=== PATIENT | female | born 1940 | race Two or more races ===

== ENCOUNTER 2017-12-15 21:01 | Inpatient (IN) | payer MEDICAID, MEDICARE ==
[~2017-12-15] VITALS: Ht 167.6 cm; Wt 67.6 kg
[2017-12-15 21:05] VITALS: BP 131/64
--- NOTE | 2017-12-15 21:05 | NUR ---
RN NOTES ADMITTED A 77 YEARS OLD, FEMALE PT FROM [place], WITH PRIMARY DIAGNOSIS OF SYNCOPE UNDER MEDICAL MGT OF DR BEE. PT IS ALERT AND ORIENTED X2 WITH PERIODS OF CONFUSION. VITAL SIGNS STABLE, ATTACHED TO TELEMONITOR WHICH READS SINUS RHYTHM AT 84. DENIES PAIN, NAUSEA AND VOMITING AT THIS TIME. SKIN AND BODY ASSESSMENT DONE, SKIN CLEAR AND INTACT. DR BEE MADE AWARE ABOUT THE ADMISSION, ADMITTING ORDERS MADE AND CARRIED OUT. SAFETY MEASURES AND FALL PRECAUTION OBSERVED. CAREGIVER AT BEDSIDE. WILL CONTINUE TO MONITOR PT.
--- NOTE | 2017-12-15 22:00 | NUR ---
RN NOTES SEEN AND EXAMINED BY DR BEE, NEW ORDERS MADE, CONTINUE HOME MEDS. WILL CONTINUE TO MONITOR PT.
[2017-12-15] MEDS ORDERED: IV NS 0.9% 1,000 ML IV PRN (22:15)
[2017-12-15] MEDS ORDERED: MAG HYDROX/AL HYDROX/SIMETH 30 ML UDC PO PRN (22:30)
[2017-12-15] MEDS ORDERED: ONDANSETRON HCL/PF 4 MG/2 ML VIAL IVP PRN (22:30)
[2017-12-15] MEDS ORDERED: HYDROCODONE/APAP 5/325MG 1 EACH TABLET PO PRN (22:30)
[2017-12-15] MEDS ORDERED: ACETAMINOPHEN 325 MG TABLET PO PRN (22:30)
[2017-12-15] MEDS ORDERED: ZOLPIDEM TARTRATE 5 MG TABLET PO PRN (22:30)
[2017-12-15] MEDS ORDERED: Z GUARD REMEDY 2 OZ OINT TP PRN (22:30)
[2017-12-15] MEDS ORDERED: MAGNESIUM HYDROXIDE 30 ML UDC PO PRN (22:30)
[2017-12-15] MEDS: ENOXAPARIN SODIUM 40 MG/0.4 ML DISP.SYRIN SQ SCH (22:49)
[2017-12-15] MEDS ORDERED: MULT-31 PO (23:04)
[2017-12-15] MEDS ORDERED: POLY255P2 PO (23:04)
[2017-12-15] MEDS ORDERED: LACT10SO PO (23:04)
[2017-12-15] MEDS ORDERED: SITA50TA PO (23:04)
[2017-12-15] MEDS ORDERED: DIVA500T7 PO ×2 (23:04)
[2017-12-15] MEDS ORDERED: LISI-603 PO (23:04)
[2017-12-15] MEDS ORDERED: ATOR10TA PO (23:04)
[2017-12-15] MEDS ORDERED: ASPI-605 PO (23:04)
[2017-12-15] MEDS ORDERED: LATA2.5D2 OP (23:04)
[2017-12-15] MEDS ORDERED: ALEN70TA45 PO (23:04)
[2017-12-15] MEDS ORDERED: MAGN400O21 PO (23:04)
[2017-12-15] MEDS ORDERED: METF500T4 PO (23:04)
[2017-12-15] MEDS ORDERED: FERR325T23 PO (23:04)
[2017-12-15] MEDS ORDERED: LEVO330T PO (23:04)
[2017-12-15] MEDS ORDERED: DIPH50CA4 PO (23:29)
[2017-12-15] MEDS ORDERED: ALBU1.257 NEB (23:29)
[2017-12-15] MEDS ORDERED: IBUP-1957 PO (23:29)
[2017-12-15] MEDS ORDERED: GUAI120S17 PO (23:29)
[2017-12-15] MEDS ORDERED: DEXT15DR6 OP (23:29)
[2017-12-15] MEDS ORDERED: TYL2T MC (23:29)
[2017-12-16] VITALS (7 sets, daily range): BP systolic 126–159; BP diastolic 70–88
[2017-12-16] MEDS ORDERED: ALBUTEROL HALF STRENGTH 1.25 MG/3 ML VIAL.NEB NEB PRN
[2017-12-16] MEDS ORDERED: DEXTROSE 50%-WATER 50 ML DISP.SYRIN IV PRN
[2017-12-16] MEDS ORDERED: POLYVINYL ALCOHOL 15 ML BOTTLE EACHEYE PRN
[2017-12-16] MEDS: IBUPROFEN 800 MG TABLET PO SCH ×2 (06:00)
[2017-12-16 06:35] LABS: BASOPHILS % (AUTO) 0.4 % (0.0-2.0); EOSINOPHILS % (AUTO) 0.6 % (0.0-6.0); HEMATOCRIT 29 % (33-45); HEMOGLOBIN 10.2 g/dL (11.5-14.8); LYMPHOCYTES # (AUTO) 1.1 /CMM (0.8-4.8); LYMPHOCYTES % (AUTO) 25.4 % (20.0-44.0); MEAN CORPUSCULAR HEMOGLOBIN 34 PG (26.0-33.0); MEAN CORPUSCULAR HGB CONC 35 g/dl (31.0-36.0); MEAN CORPUSCULAR VOLUME 96 fL (82-100); MONOCYTES # (AUTO) 0.6 /CMM (0.1-1.30); MONOCYTES % (AUTO) 13.3 % (2.0-12.0); NEUTROPHILS # (AUTO) 2.7 /CMM (1.8-8.9); NEUTROPHILS % (AUTO) 60.3 % (43.0-81.0); PLATELET COUNT (AUTO) 92 /CMM (150-450); RDW COEFFICIENT OF VARIATION 13.1 (11.5-15.0); RED BLOOD CELL COUNT(AUTO) 3.05 MIL/uL (4.0-5.2); WHITE BLOOD COUNT (AUTO) 4.5 K/uL (4.3-11.0)
[2017-12-16] MEDS: BLOOD SUGAR DIAGNOSTIC 1 EACH STRIP IN SCH ×4 (06:40→21:54)
[2017-12-16 06:48] LABS: B-TYPE NATRIURETIC PEPTIDE 622 PG/ML (0-125); CALCIUM, SERUM 8.5 mg/dL (8.5-10.1); CARBON DIOXIDE 28 mmol/L (21-32); CHLORIDE 104 mmol/L (98-107); CREATININE 0.5 mg/dL (0.6-1.3); GLUCOSE 82 mg/dL (74-106); MAGNESIUM 1.7 mg/dL (1.8-2.4); PHOSPHORUS 2.9 mg/dL (2.5-4.9); POTASSIUM 3.7 mmol/L (3.5-5.1); SODIUM SERUM 139 mmol/L (136-145); UREA NITROGEN, BLOOD 13 mg/dL (7-18)
[2017-12-16 06:53] LABS: CHOLESTEROL 108 mg/dL (<200); HDL CHOLESTEROL 79 mg/dL (40-60); LDL 31 mg/dL (0-99); TRIGLYCERIDES 14 mg/dL (30-150)
--- NOTE | 2017-12-16 07:08 | NUR ---
RN NOTES PT SLEPT WELL OVERNIGHT. VITAL SIGNS STABLE, DENIES PAIN, NAUSEA AND VOMITING. EKG X2 AND TELEMONITOR READS SINUS RHYTHM WITH HEART RATE AT 72. ASSISTED TO THE BATHROOM WITH MODERATE ASSISTANCE. ALL NEEDS ATTENDED. FALL PRECAUTION OBSERVED. WILL ENDORSE TO MORNING RN FOR CONTINUITY OF CARE.
[2017-12-16] MEDS ORDERED: ALENDRONATE 70 MG TABLET PO SCH (07:30)
[2017-12-16] MEDS: LINAGLIPTIN 5 MG TABLET PO SCH (08:36)
[2017-12-16] MEDS: LISINOPRIL (20MG) 20 MG TABLET PO SCH (08:36)
[2017-12-16] MEDS: LEVOCARNITINE 330 MG TABLET PO SCH ×2 (08:37→17:24)
[2017-12-16] MEDS: METFORMIN 500 MG TABLET PO SCH ×2 (08:37→17:00)
[2017-12-16] MEDS: ASPIRIN EC 81 MG TABLET.DR PO SCH (08:37)
[2017-12-16] MEDS: MULTIVITAMIN/LUTEIN/MINERALS 1 TAB PO SCH (08:37)
[2017-12-16] MEDS: ATORVASTATIN 10 MG TABLET PO SCH (08:37)
[2017-12-16] MEDS ORDERED: DIVALPROEX SODIUM 500 MG TABLET.DR PO SCH ×2 (09:00→22:00)
[2017-12-16] MEDS ORDERED: FERROUS SULFATE UDC 300 MG/5 ML UDC PO SCH (09:00)
--- NOTE | 2017-12-16 09:00 | NUR ---
tele skein winder: cardio consult seen and examined by dr. vaughn with new orders. orders acknowledged.
[2017-12-16] MEDS: IV NS 0.9% 1,000 ML IV SCH ×2 (09:13→17:21)
[2017-12-16] MEDS: FENOFIBRATE NANOCRYS (145 MG) 145 MG TABLET PO SCH (09:13)
[2017-12-16 09:19] LABS: LYMPHOCYTES % (MANUAL) 18 % (16-48); MONOCYTES % (MANUAL) 15 % (0-11.0); NEUTROPHILS % (MANUAL) 67 (42-76)
--- NOTE | 2017-12-16 10:00 | NUR ---
tele production metal sprayer: neuro consult seen and examined by dr. gallardo at this time. tele remains sr=80's. private caregiver remains at bedside. will continue to monitor.
[2017-12-16 10:02] LABS: THYROID STIMULATING HORMONE 1.841 uIU/mL (0.358-3.74)
[2017-12-16] MEDS: INSULIN REGULAR, HUMAN 100 UNIT/ML 3 ML VIAL SQ PRN ×2 (11:39→21:59)
[2017-12-16] MEDS: IBUPROFEN 600 MG TABLET PO SCH ×2 (12:01→17:24)
[2017-12-16] MEDS: Magnesium 1GM/D5W 100ML PREMIX 100 ML IV SCH ×2 (12:02→13:39)
--- NOTE | 2017-12-16 12:10 | NUR ---
m/s production repairer: md visit seen and examined by rosey (laila) at this time. p.t. tx was held due to orthostatic, laila made aware; also made aware that pt wasn't orthostatic this morning with no new order.
[2017-12-16 15:03] LABS: APPEARANCE,URINE SL CLOUDY (CLEAR); BILIRUBIN,URINE NEGATIVE (NEGATIVE); BLOOD, URINE TRACE Ery/uL (NEGATIVE); COLOR,URINE YELLOW (YELLOW); KETONES,URINE NEGATIVE (NEGATIVE); LEUKOCYTE ESTERASE ,URINE NEGATIVE (NEGATIVE); NITRITE, URINE NEGATIVE (NEGATIVE); PH,URINE 6.5 (5.0-8.0); PROTEIN,URINE NEGATIVE (NEGATIVE); UGLUCOSE 3+ mg/dL (NEGATIVE); UROBILINOGEN,URINE 0.2 EU/dL (0.2)
[2017-12-16 15:19] LABS: BACTERIA,URINE None seen /HPF (None Seen); SQUAMOUS EPITHELIAL CELL,UR Few /HPF (None Seen); WBC,URINE 0-2 /HPF (0-3)
--- NOTE | 2017-12-16 17:20 | NUR ---
m/s fast food server: notes bs check 47-48. pt asymptomatic. dinner served with orange juice provided. held glucophage med. will continue to monitor.
--- NOTE | 2017-12-16 17:50 | NUR ---
m/s plant care worker: notes pt remains asymptomatic. continue on ivf of ns at 200ml/hr then h/l. pt had dinner. re check do=200. private caregiver remains at bedside. needs attended. no apparent distress noted. will continue to monitor.
--- NOTE | 2017-12-16 18:32 | NUR ---
Patient resides at [facility] [place] ADDRESS: [id number] [facility], [place] tel: [phone]. Spoke with Genevieve hector at the [facility] custodial, patient has 1:1 sitter/ caregiver at the facility.Patient ambulates with a walker, requires assistance with adl's. Current plan is to return to the custodial. [facility] has transformation available when discharge. Addendum: 12/16/17 at 1834 by JAZMINE REYNAGA RN Amended: Links added.
--- NOTE | 2017-12-16 18:50 | NUR ---
m/s despatching and receiving clerk: notes resting comfortable in bed with no distress noted. private caregiver at bedside. will continue to monitor.
--- NOTE | 2017-12-16 19:10 | NUR ---
RN NOTES RECEIVED PT AWAKE, HOB ELEVATED, ON ROOM AIR AND TOLERATED WELL. PT ALERT AND ORIENTED X2 WITH CONFUSION NOTED. DENIES PAIN, NAUSEA AND VOMITING. IV ACCESS ON LEFT FOREARM PATENT AND INTACT WITH ONGOING IVF FLUID AT BOLUS RATE. SAFETY MEASURES AND FALL PRECAUTION OBSERVED WITH CALL LIGHT WITHIN REACH, CAREGIVER AT BEDSIDE. WILL CONTINUE TO MONITOR PT.
[2017-12-16] MEDS: LATANOPROST EYE DROP 0.005% 2.5 ML BOTTLE OP SCH (21:55)
[2017-12-16] MEDS: POLYETHYLENE GLYCOL 3350 17 GM POWD.PACK PO SCH (21:56)
[2017-12-16] MEDS: DIVALPROEX SODIUM 125 MG TABLET.DR PO SCH (21:56)
[2017-12-16] MEDS: ENOXAPARIN SODIUM 40 MG/0.4 ML DISP.SYRIN SQ SCH (21:57)
[2017-12-17] MEDS: IBUPROFEN 600 MG TABLET PO SCH ×5 (00:28→23:06)
[2017-12-17 06:00] VITALS: BP_SYST 162; BP_SYST 165; BP_SYST 170; BP_DIAS 85; BP_DIAS 90; BP_DIAS 93
[2017-12-17 06:37] LABS: CALCIUM, SERUM 8.6 mg/dL (8.5-10.1); CARBON DIOXIDE 29 mmol/L (21-32); CHLORIDE 103 mmol/L (98-107); CREATININE 0.5 mg/dL (0.6-1.3); GLUCOSE 74 mg/dL (74-106); MAGNESIUM 1.8 mg/dL (1.8-2.4); POTASSIUM 4.4 mmol/L (3.5-5.1); SODIUM SERUM 138 mmol/L (136-145); UREA NITROGEN, BLOOD 10 mg/dL (7-18)
[2017-12-17] MEDS: BLOOD SUGAR DIAGNOSTIC 1 EACH STRIP IN SCH ×4 (06:52→22:56)
--- NOTE | 2017-12-17 07:30 | NUR ---
RN MS NOTES PT IN BED, AWAKE, ALERT, NO COMPLAINT OF PAIN, RESPIRATIONS NORMAL AND NOT LABORED, CAREGIVER AT BEDSIDE, CALL LIGHT WITHIN REACH, SAFETY PRECAUTIONS OBSERVED, NEEDS ATTENDED.
--- NOTE | 2017-12-17 07:46 | NUR ---
RN NOTES PT AWAKE,NO SIGNS OF DISTRESS AND DISCOMFORT NOTED. DENIES PAIN, NAUSEA AND VOMITING. ASSISTED TO THE BATHROOM, FALL PRECAUTION OBSERVED. ALL NEEDS ATTENDED, CAREGIVER AT BEDSIDE. ENDORSED TO MORNING RN FOR CONTINUITY OF CARE.
[2017-12-17 08:00] VITALS: BP 178/96
[2017-12-17] MEDS ORDERED: MAGNESIUM HYDROXIDE 30 ML UDC PO SCH (09:00)
[2017-12-17] MEDS: METFORMIN 500 MG TABLET PO SCH ×2 (09:30→17:57)
[2017-12-17] MEDS: DIVALPROEX SODIUM 125 MG TABLET.DR PO SCH ×2 (09:30→22:57)
[2017-12-17] MEDS: LISINOPRIL (20MG) 20 MG TABLET PO SCH (09:30)
[2017-12-17] MEDS: FENOFIBRATE NANOCRYS (145 MG) 145 MG TABLET PO SCH (09:30)
[2017-12-17] MEDS: ASPIRIN EC 81 MG TABLET.DR PO SCH (09:31)
[2017-12-17] MEDS: LINAGLIPTIN 5 MG TABLET PO SCH (09:31)
[2017-12-17] MEDS: MULTIVITAMIN/LUTEIN/MINERALS 1 TAB PO SCH (09:32)
[2017-12-17] MEDS: LEVOCARNITINE 330 MG TABLET PO SCH ×2 (09:34→17:57)
[2017-12-17] MEDS: ATORVASTATIN 10 MG TABLET PO SCH (09:37)
[2017-12-17] MEDS ORDERED: MAGNESIUM CITRATE 296 ML BOTTLE PO ONE ×3 (10:30→15:30)
[2017-12-17] MEDS ORDERED: NA PHOS,M-B/NA PHOS,DI-BA 1 EA ENEMA RC PRN (12:30)
[2017-12-17] MEDS ORDERED: PEG 3350/NA SULF,BICARB,CL/KCL 4,000 ML BOTTLE PO ONE (12:30)
--- NOTE | 2017-12-17 13:00 | NUR ---
RN MS NOTES PT IN BED, ASSISTED TO BATHROOM NEEDED, PT SEEN BY JORGE CRUZ AND OTILIO AMBULATORY TECHNOLOGIST FOR GI CONSULT, PLAN FOR ENDOSCOPY AND COLONOSCOPY TOMORROW, PT AND CAREGIVER INFORMED, KEPT PT COMFORTABLE.
[2017-12-17] MEDS: INSULIN REGULAR, HUMAN 100 UNIT/ML 3 ML VIAL SQ PRN (13:21)
[2017-12-17] MEDS: SOD FERRIC GLUC 125 MG in IV NS 0.9% 100 ML IV SCH (15:37)
[2017-12-17 16:00] VITALS: BP 146/78
--- NOTE | 2017-12-17 18:30 | NUR ---
RN MS NOTES PT IN BED, AWAKE, ALERT AND ORIENTED, NO COMPLAINT OF PAIN, BREATHING PATTERN NORMAL AND NOT LABORED, CALL LIGHT WITHIN REACH, CAREGIVER AT BEDISIDE, STARTED ON PRE OP PREP, TOLERATING GOLYTELY WELL, ASSISTED TO BATHROOM, STOOL IS GETTING WATERY BUT NOT CLEAR YET, INSTRUCTED CAREGIVER TO CONTINUE TO OFFER GOLYTELY, VERBALIZED UNDERSTANDING, PT IS COMPLIANT WITH CARE, CALLED KING QUIJANO [facility] LASER BEAM TRIM OPERATOR FOR PT, LEFT MESSAGE SEVERAL TIMES TO [phone] AND [phone], AWAIING CALL BACK FOR PROCEDURE CONSENT, WILL ENDORSE TO INCOMING NURSE FOR FOLLOW UP.
--- NOTE | 2017-12-17 19:10 | NUR ---
MS/RN OPENING NOTES PT RECEIVED AWAKE, SITTING UP IN BED WITH CAREGIVER AT BEDSIDE. A/OX2, ON ROOM AIR, BREATHING EVEN AND UNLABORED. NO S/S OF SOB, DENIES PAIN AT THIS TIME. IV TO LFA PATENT AND INTACT. CAREGIVER ENCOURAGING PT TO DRINK GOLYTELY FOR EGD AND COLONOSCOPY TOMORROW. CONSENTS NOT SIGNED YET. AWAITING CALL FROM FOREPART LASTER KING QUIJANO FROM [facility] TO GET PHONE CONSENT. BED IN LOW/LOCKED POSITION WITH CALL LIGHT IN REACH. SIDE RAILS UPX2. WILL CONTINUE TO MONITOR
[2017-12-17 20:00] VITALS: BP 149/94
--- NOTE | 2017-12-17 21:00 | NUR ---
MS/RN NOTES CALLED [facility] AT [phone] AND LEFT MESSAGE WITH SUPA TO HAVE GLAZE WIPER KING QUIJANO CALL ME FOR VERBAL CONSENT FOR EGD AND COLONOSCOPY. AWAITING CALL BACK.
--- NOTE | 2017-12-17 21:15 | NUR ---
MS/RN NOTES RECEIVED CALL FROM SONY BAH AT [facility]. STATES SHE CURRENTLY DOES NOT HAVE ACCESS TO THEIR NETWORK (COMPUTERS SHUT DOWN UNTIL 0730 TOMORROW) AND CANNOT PULL UP PT INFORMATION. STATED THAT SHE WILL FOLLOW UP WITH AN EMAIL TO KING QUIJANO TOMORROW MORNING ONCE THE COMPUTERS ARE BACK UP AND ASK HER TO CALL [facility] SO WE CAN OBTAIN CONSENT.
[2017-12-17] MEDS: LATANOPROST EYE DROP 0.005% 2.5 ML BOTTLE OP SCH (22:56)
[2017-12-17] MEDS: POLYETHYLENE GLYCOL 3350 17 GM POWD.PACK PO SCH (22:56)
--- NOTE | 2017-12-17 23:00 | NUR ---
MS/RN NOTES PER TONI MCGOVERN OKAY TO GIVE 2200 DOSE OF LOVENOX, ALTHOUGH PT HAVING COLONOSCOPY AND EGD TOMORROW MORNING.
--- NOTE | 2017-12-17 23:01 | NUR ---
MS/RN NOTES BLOOD ECFCG=651, NO INSULIN COVERAGE. PT NPO AT MIDNIGHT FOR PROCEDURE TOMORROW MORNING.
[2017-12-17] MEDS: ENOXAPARIN SODIUM 40 MG/0.4 ML DISP.SYRIN SQ SCH (23:06)
[2017-12-18] MEDS: INSULIN REGULAR, HUMAN 100 UNIT/ML 3 ML VIAL SQ PRN ×4 (00:14→18:01)
[2017-12-18] MEDS: IBUPROFEN 600 MG TABLET PO SCH ×2 (06:00→13:31)
--- NOTE | 2017-12-18 07:20 | NUR ---
MS/RN CLOSING NOTES PT AWAKE, RESTING IN BED WITH CAREGIVER AT BEDSIDE. ON ROOM AIR, BREATHING EVEN AND UNLABORED. NO SOB OR PAIN NOTED. IV TO LFA PATENT AND INTACT. PT REMAINED NPO POST MIDNIGHT. PT REFUSING TO COMPLETE GOLYTELY. ADMINISTERED PRN FLEET ENEMA. PT'S STOOL NOT CLEAR. NOTIFIED DR. REYES AND HE ORDERED ANOTHER FLEET ENEMA. ALSO NOTIFIED HIM THAT WE HAVE BEEN TRYING TO GET AHOLD OF PT'S SKIN CARE SPECIALIST FOR CONSENT, STILL WITH NO LUCK. VOICEMAILS HAVE BEEN LEFT. DR. REYES ASKED TO HAVE NURSING HOUSECALLS NURSE GET IN CONTACT WITH PT'S SKIN CARE SPECIALIST IN ORDER TO GET CONSENTS SIGNED. ENDORSED TO DAY SHIFT RN FOR RADHA.
--- NOTE | 2017-12-18 07:30 | NUR ---
RN OPENING NOTES RECEIVED PT. IN BED ON NPO SCHEDULED FOR AN EGD, AND COLONOSCOPY PROCEDURE TODAY. PT. IS A&OX1-2, CONFUSED. CAREGIVER IS AT BEDSIDE. BREATHING UNLABORED, AND EVENLY ON ROOM AIR. SIGN ABOVE BED READING RIGHT ARM NO BLOOD PRESSURE, AND BLOOD DRAW DUE TO HX. OF BREAST CA RIGHT S/P MASTECTOMY. BED IS IN LOWEST, AND LOCKED POSITION. 2 SIDE RAILS UP, AND CALL LIGHT IS WITHIN REACH. ALL NEEDS MET. WILL CONTINUE TO ASSESS AND MONITOR.
[2017-12-18] MEDS: BLOOD SUGAR DIAGNOSTIC 1 EACH STRIP IN SCH ×3 (07:53→17:57)
--- NOTE | 2017-12-18 08:35 | NUR ---
RN NOTES CALLED KING QUIJANO AT [phone], AND LEFT MESSAGE WITH CALL BACK NUMBER TO DISCUSS PT.'S PROCEDURE TODAY, AND TO SIGN CONSENT FORMS.
--- NOTE | 2017-12-18 08:45 | NUR ---
RN NOTES SPOKE WITH NURSING SKILLED LABORER TO INFORM CALLED A COUPLE TIMES TO REACH KING AT [facility] AND LEFT MESSAGES ABOUT PT.'S GETTING A CONSENT FOR EGD, AND COLONOSCOPY PROCEDURE. NURSING SKILLED LABORER REQUESTED THAT OR SHOULD BE CONTACTED AT EX 499.
[2017-12-18 08:49] VITALS: BP 138/78
--- NOTE | 2017-12-18 08:58 | NUR ---
RN NOTES KING RETURNED CALL AND SAID THAT DR. VIK SOLORZANO CAN PROVIDE CONSENT FOR PROCEDURE, SHE WILL DISCUSS WITH DOCTOR, AND WILL ASK HIM TO CALL BACK.
[2017-12-18] MEDS: LINAGLIPTIN 5 MG TABLET PO SCH (09:00)
[2017-12-18] MEDS: METFORMIN 500 MG TABLET PO SCH ×2 (09:00→17:48)
[2017-12-18] MEDS: MULTIVITAMIN/LUTEIN/MINERALS 1 TAB PO SCH (09:00)
[2017-12-18] MEDS: FENOFIBRATE NANOCRYS (145 MG) 145 MG TABLET PO SCH (09:00)
--- NOTE | 2017-12-18 09:00 | NUR ---
RN NOTES INFORMED THE OR, PT.'S DOCTOR WILL CALL BACK TO PROVIDE CONSENT FOR PT. PROCEDURES TODAY.
[2017-12-18] MEDS: LEVOCARNITINE 330 MG TABLET PO SCH ×2 (13:15→17:49)
[2017-12-18] MEDS: ATORVASTATIN 10 MG TABLET PO SCH (13:25)
[2017-12-18] MEDS: ASPIRIN EC 81 MG TABLET.DR PO SCH (13:25)
[2017-12-18] MEDS: DIVALPROEX SODIUM 125 MG TABLET.DR PO SCH (13:25)
[2017-12-18] MEDS: LISINOPRIL (20MG) 20 MG TABLET PO SCH (13:25)
[2017-12-18] MEDS ORDERED: LISINOPRIL (10MG) 10 MG TABLET PO ONE (14:30)
[2017-12-18] MEDS ORDERED: hydrALAZINE HCL IV 20 MG VIAL IV ONE (14:30)
[2017-12-18] MEDS: SOD FERRIC GLUC 125 MG in IV NS 0.9% 100 ML IV SCH (15:17)
[2017-12-18 16:07] VITALS: BP 162/96
[2017-12-18 16:17] LABS: BASOPHILS % (AUTO) 0.2 % (0.0-2.0); EOSINOPHILS % (AUTO) 0.2 % (0.0-6.0); HEMATOCRIT 37 % (33-45); HEMOGLOBIN 12.7 g/dL (11.5-14.8); LYMPHOCYTES # (AUTO) 0.5 /CMM (0.8-4.8); LYMPHOCYTES % (AUTO) 7.3 % (20.0-44.0); MEAN CORPUSCULAR HEMOGLOBIN 34 PG (26.0-33.0); MEAN CORPUSCULAR HGB CONC 35 g/dl (31.0-36.0); MEAN CORPUSCULAR VOLUME 97 fL (82-100); MONOCYTES # (AUTO) 0.4 /CMM (0.1-1.30); MONOCYTES % (AUTO) 6.3 % (2.0-12.0); NEUTROPHILS # (AUTO) 5.5 /CMM (1.8-8.9); PLATELET COUNT (AUTO) 110 /CMM (150-450); RDW COEFFICIENT OF VARIATION 13.2 (11.5-15.0); RED BLOOD CELL COUNT(AUTO) 3.79 MIL/uL (4.0-5.2); WHITE BLOOD COUNT (AUTO) 6.4 K/uL (4.3-11.0)
[2017-12-18 17:07] LABS: CALCIUM, SERUM 9.1 mg/dL (8.5-10.1); CARBON DIOXIDE 27 mmol/L (21-32); CHLORIDE 98 mmol/L (98-107); CREATININE 0.8 mg/dL (0.6-1.3); GLUCOSE 267 mg/dL (74-106); POTASSIUM 3.7 mmol/L (3.5-5.1); SODIUM SERUM 137 mmol/L (136-145); UREA NITROGEN, BLOOD 7 mg/dL (7-18)
--- NOTE | 2017-12-18 18:10 | NUR ---
RN NOTES SPOKE WITH COOPER VIA PHONE TO GIVE REPORT FOR PT.'S DISCHARGE TODAY. COOPER'S PHONE NUMBER [phone].
--- NOTE | 2017-12-18 19:35 | NUR ---
MS /HAND SPRAYER; RECEIVED PT'S REPORTS FROM THE DAY SHIFT RN FOR DC TODAY. PT IN BED AWAKE , ALERT AND VERBALLY RESPONSIVE. BREATHING NON LABORED. HL ON LFA INTACT. DENIES PAIN. PT IS FOR ENDORSED BY THE DAY SHIFT RN. AWAITING FOR PRIVATE BAILER TENDERS SUPERVISOR. PER DAY SHIFT RN DAVID SHE SAID SHE GAVE ALREADY REPORT TO THE FACILITY ALREADY.
[2017-12-18 20:00] VITALS: BP 138/74
--- NOTE | 2017-12-18 20:14 | NUR ---
RN CLOSING NOTES PT. IN BED A&OX2. CAREGIVER AT BEDSIDE. PT. CAN FOLLOW INSTRUCTIONS. BREATHING UNLABORED, AND EVENLY ON ROOM AIR. SIGN ABOVE BED READING RIGHT ARM NO BLOOD PRESSURE, AND BLOOD DRAW DUE TO HX. OF BREAST CA RIGHT S/P MASTECTOMY. BED IS IN LOWEST, AND LOCKED POSITION. 2 SIDE RAILS UP, AND CALL LIGHT IS WITHIN REACH. ALL NEEDS MET. WILL ENDORSE DISCHARGE TO NURSE SCAR.
--- NOTE | 2017-12-18 20:20 | NUR ---
MS/POWER CHISEL OPERATOR; A PERSON CAME BY THE NAME OF MEGHNA HERR WITH WHEELCHAIR TO LOOM CHANGER THE PT. ALLDC PAPERS WERE DONE AND GIVEN COPIES TO BE GIVEN TO THE FACILITY AND HE WAS INSTRUCTED TO GIVE IT TO THE FACILITY. HL REMOVED. BELONGING LIST WRE DONE AND SIGNED BY THE CUFFER WITH THE DAY SHIFT RN AND ME.
--- NOTE | 2017-12-18 20:45 | NUR ---
MS/FREELANCE WRITER; PT DC VIA WHEEL CHAIR ACCOMPANIED BY THE ROMEL CHEN, THE SUPERVISOR DOG LICENSE OFFICER LYN THE CLUB CAR ATTENDANT.
[2017-12-20] MEDS ORDERED: ALENDRONATE 70 MG TABLET PO SCH (07:30)
== END 2017-12-18 20:40 | DRG 253 ==
LOC: TELE 21:01 → MED 12-16 12:10
PROVIDERS: ADMIT Nurse Practitioner Acute Care; ATTEND Nurse Practitioner Acute Care
DX: K92.2 Gastrointestinal hemorrhage, unspecified (principal); G93.49 Other encephalopathy; F03.90 Unspecified dementia, unspecified severity, without behavioral disturbance, psychotic disturbance, mood disturbance, and anxiety; D69.6 Thrombocytopenia, unspecified; E11.9 Type 2 diabetes mellitus without complications; I10 Essential (primary) hypertension; D63.8 Anemia in other chronic diseases classified elsewhere; G40.909 Epilepsy, unspecified, not intractable, without status epilepticus; E78.5 Hyperlipidemia, unspecified; H40.9 Unspecified glaucoma; I25.10 Atherosclerotic heart disease of native coronary artery without angina pectoris; Z79.84 Long term (current) use of oral hypoglycemic drugs; Z90.10 Acquired absence of unspecified breast and nipple; Z79.82 Long term (current) use of aspirin; Z79.899 Other long term (current) drug therapy; Z85.3 Personal history of malignant neoplasm of breast; E61.1 Iron deficiency; E03.9 Hypothyroidism, unspecified
CPT/HCPCS: 36415; 71045-TC; 80048-TC; 80061-TC; 80164-TC; 81000-TC; 82306; 82728-TC; 82962-TC; 83540-TC; 83735-TC; 83880; 84100-TC; 84439-TC; 84443-TC; 84484-TC; 85025-TC; 86850-TC; 87081-TC; 87086-TC; 93307-TC; 93880-TC; 97116-TC; 97530-TC; J0360; J1650; J1815; J2916; J3475; J7030; Z7610